=== PATIENT | female | born 1980 | race Two or more races ===

== ENCOUNTER 2024-07-06 12:44 | Outpatient (CLI) | payer OTHER ==
[~2024-07-06 12:44] MED LIST: URIN D.S. TABLE1 TAB; VASOTEC5 MG
== END 2024-07-06 12:52 | disposition home or self-care (01) ==
LOC: SONOGRAMA 12:44
PROVIDERS: ATTEND Physical Medicine & Rehabilitation
DX: M25.511 Pain in right shoulder (principal); S46.801A Unspecified injury of other muscles, fascia and tendons at shoulder and upper arm level, right arm, initial encounter